=== PATIENT | female | born 1965 | race Two or more races ===

== ENCOUNTER 2017-10-17 14:05 | Emergency (ER) | payer OTHER ==
[~2017-10-17] VITALS: Ht 157.5 cm; Wt 77.1 kg
[2017-10-17 14:25] VITALS: BP 128/74
--- NOTE | 2017-10-17 14:43 | Emergency Room Report ---
History of Present Illness General Chief Complaint: General Complaint Source: Patient Present Illness HPI Patient is a 52-year-old female presented after a continued cough and sore throat for approximately 2 weeks. Patient reportedly been treated with oral antibiotics for 5 days. She denies any productive cough. She reports having some sore throat as well as irritation to her upper airway Allergies: Coded Allergies: No Known Allergies (Unverified , 10/17/17) Patient History Reviewed Nursing Documentation: PMH: Agreed; PSxH: Agreed Review of Systems All Other Systems: negative except mentioned in HPI Physical Exam Vital Signs Date Time Temp Pulse Resp B/P (MAP) Pulse Ox O2 Delivery O2 Flow Rate FiO2 10/17/17 14:17 98.0 67 17 130/76 96 Room Air 98.1 General Appearance: well appearing, no apparent distress, alert, GCS 15 Head: normocephalic, atraumatic ENT: hearing grossly normal, normal voice Neck: full range of motion, supple Respiratory: no respiratory distress, speaking full sentences Cardiovascular #1: normal inspection, regular rate, rhythm, no edema Gastrointestinal: normal inspection Musculoskeletal: normal inspection, back normal, no calf tenderness Neurologic: normal inspection, alert, oriented x3, responsive, aircraft servicer III-XII nml as tested, normal gait Psychiatric: mood/affect normal Skin: no rash Medical Decision Making Diagnostic Impression: Primary Impression: Bronchitis ER Course Patient presented for cough. Differential diagnosis included but was not limited to bronchitis, pneumonia, pulmonary embolism, pericarditis, asthma, foreign body. Patient has a benign exam and does not appear to require any further imaging or laboratory testing at this time. The patient appears to have a residual effects from viral respiratory infection.The patient is advised to follow up with primary care doctor in 1-2 days. Patient is advised to return if any worsening condition or if any changes in status that are concerning. This report is dictated with [employer] manager software which may occasionally lead to discrepancies related to use of this software. Last Vital Signs Date Time Temp Pulse Resp B/P (MAP) Pulse Ox O2 Delivery O2 Flow Rate FiO2 10/17/17 14:25 98.0 81 17 128/74 96 Room Air 98.0 Status: improved Disposition: HOME, SELF-CARE Condition: Stable Scripts No Active Prescriptions or Reported Meds Adam Flores Oct 17, 2017 14:43
[2017-10-17] MEDS ORDERED: PREDNISONE20 MG ORAL (14:44)
[2017-10-17] MEDS ORDERED: PROMETHAZINE-D118 ML ORAL (14:44)
[2017-10-17 14:50] VITALS: BP 128/74
== END 2017-10-17 14:50 | disposition home or self-care (01) ==
LOC: EMR 14:43
DX: J40 Bronchitis, not specified as acute or chronic (principal)
CPT/HCPCS: 99282